=== PATIENT | male | born 1990 | race Caucasian/White ===

== ENCOUNTER 2021-10-06 06:35 | Emergency (ER) | payer MEDICAID ==
[~2021-10-06] VITALS: Ht 180.3 cm; Wt 68.2 kg
[2021-10-06 07:20] VITALS: BP 144/88
== END 2021-10-06 07:59 | disposition home or self-care (01) ==
LOC: EMS 06:36
DX: F41.9 Anxiety disorder, unspecified (principal)
CPT/HCPCS: 99283